=== PATIENT | female | born 1960 | race Caucasian/White ===

== ENCOUNTER 2016-12-29 00:14 | Emergency (ER) | payer MEDICAID ==
[~2016-12-29] VITALS: Ht 157.5 cm; Wt 67.3 kg
[2016-12-29 00:17] VITALS: BP 167/97
== END 2016-12-29 02:21 | disposition home or self-care (01) ==
LOC: ED 02:15
DX: H60.92 Unspecified otitis externa, left ear (principal)
CPT/HCPCS: 99283